=== PATIENT | male | born 1970 | race Hispanic/Latino ===

== ENCOUNTER → 2018-01-30 | Outpatient (CLI) | payer OTHER | END | disposition home or self-care (01) | LOC: OIH 15:10 | PROVIDERS: ATTEND Internal Medicine Cardiovascular Disease | DX: Z13.6 Encounter for screening for cardiovascular disorders (principal) | CPT/HCPCS: 75571 ==

== ENCOUNTER → 2020-06-10 | Outpatient (CLI) | payer BC ==
[2020-06-10 08:39] LABS: INR 0.96 (0.85-1.15); PARTIAL THROMBOPLASTIN TIME 25.6 SEC (26.3-35.5); PROTHROMBIN TIME 10.4 SEC (9.6-11.6)
--- NOTE | 2020-06-10 09:40 | NUR ---
US GUIDED FNA OF LEFT THYROID NODULE PROCEDURE PERFORMED BY DR. MARINELLI. PUNCTURE SITE LEFT LATERAL NECK AND PATIENT TOLERATED PROCEDURE WELL. SPECIMEN X 7 COLLECTED BY WARP CHANGERCHRIS. END OF PROCEDURE AT 1000. BIOPSY NEEDLE REMOVED AND DRESSING APPLIED. NO BLEEDING NOTED. DISCHARGE INSTRUCTIONS GIVEN TO PATIENT AND VERBALIZED UNDERSTANDING. DISCHARGED AMBULATORY STABLE, AAO X 3 WITH NO C/O PAIN.
== END ==
LOC: RAH 07:47
PROVIDERS: ATTEND Internal Medicine
DX: E04.1 Nontoxic single thyroid nodule (principal); Z79.01 Long term (current) use of anticoagulants
CPT/HCPCS: 36415; 60100; 76942; 85610; 85730